=== PATIENT | female | born 1960 | race Caucasian/White ===

== ENCOUNTER 2018-12-28 08:36 | Observation (INO) ==
[2018-12-28 10:58] LABS: Basophils % 0.3 % (0.0-0.8); Eosinophils % 0.2 % (0.00-10.9); Hematocrit 37.9 VOL% (35.7-47.0); Hemoglobin 12.8 GM/DL (12.0-16.0); Immature Granulocytes % 0.4 %; Immature Granulocytes Absolute 0.05 #; Lymphocytes # 1.1 10*3/uL (1.4-4.0); Mean Corpuscular HGB Conc 33.8 GM/DL (32-36); Mean Corpuscular Hemoglobin 30 PG (27-34); Mean Corpuscular Volume 88.8 FL (87-102); Mean Platelet Volume 9.7 FL (9.6-12.0); Monocytes # 0.9 10*3/uL (0.11-0.8); Monocytes % 6.8 % (1.7-12.7); Neutrophils # 10.5 10*3/uL (1.4-7.4); Neutrophils % 83.3 % (38.7-73.9); Platelet Count 448 T/CUMM (130-400); Red Blood Count 4.27 MC/CUMM (3.8-5.5); White Blood Count 12.6 T/CUMM (4-12)
[2018-12-28 11:04] LABS: INR 0.9; PT Patient Result 10.3 SECS; Partial Thromboplastin Time 27.5 SECS (0-40)
[2018-12-28] MEDS ORDERED: MORPHINE 4 MG/1 ML VIAL IV STA (11:04)
[2018-12-28] MEDS ORDERED: ONDANSETRON 4 MG/2 ML VIAL IV STA (11:05)
[2018-12-28 11:10] LABS: Albumin 4.1 G/DL (3.4-5.0); Bilirubin,Total 0.4 MG/DL (0.2-1.0); Calcium 9.2 MG/DL (8.5-10.1); Osmolality,Calculated 255.1 MOS/KG (273-304); Total Protein 7.4 G/DL (6.4-8.3)
[2018-12-28 11:12] LABS: Amorphous Crystals,Urine Occasional /HPF (Few); Apearance,Urine CLOUDY (Clear); Bilirubin,Urine Negative (Negative); Blood, Urine Negative (Negative); Glucose,Urine (UA) Negative (Negative); Ketones,Urine 5 mg/dL (Negative); Mucus,Urine Occasional /LPF (Occasional); Nitrite,Urine Negative (Negative); Protein,Urine Negative; RBC,Urine 2 /HPF (0-4); Urine Color Yellow (Yellow); Urine Specific Gravity 1.011 (1.001-1.035); Urine Urobilinogen < 2.0 EU/DL (0.2-1.0)
[2018-12-28 11:12] LABS: Troponin I < 0.015 NG/ML (0.00-0.045)
[2018-12-28 11:31] LABS: Barbiturates Screen,Urine Negative (Negative); Benzodiazepines Screen,Urine Negative (Negative); Cannabinoid Screen,Urine Negative (Negative); Opiate Screen,Urine Negative (Negative); Phencyclidine Screen,Urine Negative (Negative)
[2018-12-28] MEDS ORDERED: ACETAMINOPHEN 325 MG TABLET PO PRN (13:19)
[2018-12-28] MEDS ORDERED: ONDANSETRON 4 MG/2 ML VIAL IV PRN (13:47)
[2018-12-28] MEDS ORDERED: PROMETHAZINE 25 MG/1 ML VIAL IM PRN (13:47)
[2018-12-28] MEDS ORDERED: ENOXAPARIN 40 MG/0.4 ML SYRINGE SUBCUT SCH (14:00)
[2018-12-28] MEDS ORDERED: SODIUM CHLORIDE 0.9% 1,000 ML IV STA (14:14)
[2018-12-28 14:21] LABS: Free T4 (Free Thyroxine) 1.01 NG/DL (0.76-1.46)
[2018-12-28] MEDS: MECLIZINE 25 MG TABLET PO SCH ×2 (15:24→20:19)
[2018-12-28] MEDS: SODIUM CHLORIDE 0.9% 1,000 ML IV SCH (15:55)
[2018-12-29] MEDS: KETOROLAC 15 MG/1 ML VIAL IV PRN ×2 (00:06→08:44)
[2018-12-29] MEDS: SODIUM CHLORIDE 0.9% 1,000 ML IV SCH ×2 (00:07→08:46)
[2018-12-29 04:42] LABS: Basophils # 0.1 10*3/uL (0.0-0.2); Basophils % 0.8 % (0.0-0.8); Eosinophils # 0.2 10*3/uL (0.0-0.87); Eosinophils % 2.5 % (0.00-10.9); Hematocrit 36.7 VOL% (35.7-47.0); Hemoglobin 11.9 GM/DL (12.0-16.0); Immature Granulocytes % 0.4 %; Immature Granulocytes Absolute 0.03 #; Lymphocytes # 2.1 10*3/uL (1.4-4.0); Lymphocytes % 26.7 % (21.3-54.2); Mean Corpuscular HGB Conc 32.4 GM/DL (32-36); Mean Corpuscular Hemoglobin 30 PG (27-34); Mean Corpuscular Volume 92.7 FL (87-102); Mean Platelet Volume 9.4 FL (9.6-12.0); Monocytes # 0.7 10*3/uL (0.11-0.8); Monocytes % 8.6 % (1.7-12.7); Neutrophils # 4.8 10*3/uL (1.4-7.4); Platelet Count 368 T/CUMM (130-400); Red Blood Count 3.96 MC/CUMM (3.8-5.5); Red Cell Distribution Width 12.2 % (9.3-17.3); White Blood Count 7.9 T/CUMM (4-12)
[2018-12-29 05:04] LABS: Albumin 3.3 G/DL (3.4-5.0); Bilirubin,Total 0.5 MG/DL (0.2-1.0); Osmolality,Calculated 269.8 MOS/KG (273-304); Risk Ratio 4.19; Total Protein 6.5 G/DL (6.4-8.3); VLDL CHOLESTEROL 27.2 MG/DL
[2018-12-29] MEDS ORDERED: LEVOTHYROXINE 100 MCG TABLET PO SCH (06:30)
[2018-12-29] MEDS ORDERED: LEVOTHYROXINE 75 MCG TABLET PO SCH (07:00)
[2018-12-29] MEDS: MECLIZINE 25 MG TABLET PO SCH (08:44)
[2018-12-29] MEDS ORDERED: PANTOPRAZOLE 40 MG TABLET PO SCH (09:00)
[2018-12-29 11:47] VITALS: BP 137/76
[2018-12-30 15:31] LABS: Osmolality, Serum 269 mOsm/kg (275 - 295)
[2018-12-30 15:33] LABS: Osmolality, Urine 355 mOsm/kg (150 - 1150)
== END 2018-12-29 13:59 | disposition home or self-care (01) ==
LOC: N.EDINP 08:36 → N.ED 08:36 → SUATTDRO 13:19 → N.2E 15:01
PROVIDERS: ADMIT Internal Medicine; ATTEND Phlebology